=== PATIENT | male | born 2000 | race Caucasian/White ===

== ENCOUNTER 2021-11-03 15:14 | Emergency (ER) | payer OTHER, BC, SELFPAY ==
[2021-11-03 15:29] VITALS: BP 149/93; PULSE 61; RESP 18; TEMP 37; O2SAT 99
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
[2021-11-03 17:50] VITALS: BP 147/79; PULSE 60; RESP 18; TEMP 36.8; O2SAT 96
[2021-11-03] MEDS: Lidocaine 5% Patch 1 PATCH TP (18:12)
--- NOTE | 2021-11-04 07:09 | NUR.NOTE ---
Nursing Note: referral to cm for pcp
--- NOTE | 2021-11-05 10:25 | CMACTNOTE_ITS ---
- If Service Date Differs Date of service: 11/05/21 Time of Service: 10:25 Care Management Activity Note Alan is seen in the ED for contusion of knee and cervical spine pain. At the request of ED provider, LAURO coordinates a referral to Julius Scales MD, of [facility], on-call provider, to assist Alan in obtaining a follow up appointment and in establishing care with a PCP. He is also referred to the Community Junior Administrative Assistant at the [facility] as he appears to be without health insurance.
== END 2021-11-03 18:12 | disposition home or self-care (01) ==
PROVIDERS: Emergency Provider Physician Assistant
DX: S13.4XXA Sprain of ligaments of cervical spine, initial encounter (principal); S80.02XA Contusion of left knee, initial encounter; M54.2 Cervicalgia; V43.52XA Car driver injured in collision with other type car in traffic accident, initial encounter
CPT/HCPCS: 99284; 72125; 73564; 99283